=== PATIENT | female | born 1980 | race African-American/Black ===

== ENCOUNTER 2016-04-14 15:20 | Emergency (ER) | payer SELFPAY ==
[~2016-04-14] VITALS: Ht 167.6 cm; Wt 100.0 kg
[~2016-04-14 15:20] MED LIST: ZOLP10 PO
[2016-04-14] MEDS ORDERED: OMEP10 PO (16:17)
[2016-04-14 16:55] LABS: BASOPHILS # (AUTO) 0.21 K/uL (0.00-0.20); BASOPHILS % (AUTO) 2.6 % (0.0-2.0); EOSINOPHILS # (AUTO) 0.81 K/uL (0.00-0.70); EOSINOPHILS % (AUTO) 9.98 % (1.0-6.0); HEMATOCRIT 36.2 % (36-46); HEMOGLOBIN 11.8 g/dL (12.0-16.0); LYMPHOCYTES # (AUTO) 2.3 K/uL (1.0-4.8); LYMPHOCYTES % (AUTO) 28.8 % (22.0-44.0); MEAN CORPUSCULAR HEMOGLOBIN 27.4 pg (26.0-34.0); MEAN CORPUSCULAR HGB CONC 32.5 G/dL (31.0-37.0); MEAN CORPUSCULAR VOLUME 84 fL (80-100); MONOCYTES # (AUTO) 0.3 K/uL (0.1-1.0); MONOCYTES % (AUTO) 3.7 % (2.0-9.0); NEUTROPHILS # (AUTO) 4.5 K/uL (1.8-7.7); NEUTROPHILS % (AUTO) 54.9 % (40.0-70.0); PLATELET COUNT (AUTO) 169 K/uL (150-450); RED BLOOD CELL COUNT(AUTO) 4.29 MIL/uL (4.00-5.20); WHITE BLOOD COUNT (AUTO) 8.1 K/uL (4.5-11.0)
[2016-04-14 16:58] LABS: ANION GAP 10 mmol/L (8-16); CALCIUM, TOTAL 9.1 mg/dL (8.8-10.5); CARBON DIOXIDE 26 mmol/L (22-29); CHLORIDE 102 mmol/L (98-107); CREATININE 0.88 mg/dL (0.60-1.30); GLOMERULAR FILTR. RATE CALC > 60 mL/min (>60); POTASSIUM 3.7 mmol/L (3.5-5.1); SODIUM SERUM 138 mmol/L (136-145); UREA NITROGEN, BLOOD 13 mg/dL (7-18)
[2016-04-14 17:02] LABS: PROTHROMBIN TIME 10.4 SEC (9.4-11.6)
[2016-04-14 17:23] LABS: ALANINE AMINOTRANSFERASE 30 U/L (12-78); ALBUMIN 3.9 g/dL (3.4-5.0); ASPARTATE AMINOTRANSFERASE 13 U/L (15-37); BILIRUBIN,TOTAL 0.3 mg/dL (0.1-1.0); CREATINE KINASE MB < 0.5 ng/mL (0-5); CREATINE KINASE, TOTAL 78 U/L (26-192); TOTAL PROTEIN, SERUM 7.7 g/dL (6.4-8.2)
[2016-04-14] MEDS ORDERED: LORazepam 1 MG TABLET PO ONE (18:00)
[2016-04-14 18:15] LABS: APPEARANCE,URINE CLEAR (CLEAR); GLUCOSE, URINE (UA) NEGATIVE (NEGATIVE); KETONES,URINE NEGATIVE (NEGATIVE); LEUKOCYTE ESTERASE ,URINE NEGATIVE (NEGATIVE); OCCULT BLOOD,URINE NEGATIVE (NEGATIVE); PH,URINE 6.5 (5.0-8.0); PROTEIN,URINE NEGATIVE (NEGATIVE)
[2016-04-14 18:18] LABS: ADD UA MICROSCOPIC NO
[2016-04-14] MEDS ORDERED: KETOROLAC TROMETHAMINE 60 MG/2 ML VIAL IM ONE (19:15)
[2016-04-14 19:49] VITALS: BP 128/63
== END 2016-04-14 20:12 | disposition home or self-care (01) ==
LOC: EMS 15:24
DX: R07.89 Other chest pain (principal); F41.9 Anxiety disorder, unspecified; F17.210 Nicotine dependence, cigarettes, uncomplicated; Z88.0 Allergy status to penicillin
CPT/HCPCS: 36415; 71010; 80053; 80307; 81003; 82550; 82553; 84484; 84703; 85025; 85610; 93005; 96372; 99285; 99406; J1885

== ENCOUNTER 2017-02-28 09:12 | Emergency (ER) | payer OTHER ==
[~2017-02-28] VITALS: Ht 175.3 cm; Wt 95.0 kg
[~2017-02-28 09:12] MED LIST changes: +OMEP10 PO; -ZOLP10 PO; +ZOLP10TA7 PO
[2017-02-28 09:56] LABS: APPEARANCE,URINE CLEAR (CLEAR); GLUCOSE, URINE (UA) NEGATIVE (NEGATIVE); KETONES,URINE NEGATIVE (NEGATIVE); LEUKOCYTE ESTERASE ,URINE NEGATIVE (NEGATIVE); OCCULT BLOOD,URINE NEGATIVE (NEGATIVE); PROTEIN,URINE NEGATIVE (NEGATIVE)
[2017-02-28 10:02] LABS: ADD UA MICROSCOPIC NO
[2017-02-28 10:51] LABS: BASOPHILS % (AUTO) 0.6 % (0.0-2.0); EOSINOPHILS % (AUTO) 14.9 % (1.0-6.0); HEMATOCRIT 33.8 % (36-46); HEMOGLOBIN 11.4 g/dL (12.0-16.0); LYMPHOCYTES # (AUTO) 1.8 K/uL (1.0-4.8); LYMPHOCYTES % (AUTO) 19.9 % (22.0-44.0); MEAN CORPUSCULAR HEMOGLOBIN 28.8 pg (26.0-34.0); MEAN CORPUSCULAR HGB CONC 33.6 G/dL (31.0-37.0); MEAN CORPUSCULAR VOLUME 86 fL (80-100); MONOCYTES # (AUTO) 0.3 K/uL (0.1-1.0); MONOCYTES % (AUTO) 3.3 % (2.0-9.0); NEUTROPHILS # (AUTO) 5.5 K/uL (1.8-7.7); NEUTROPHILS % (AUTO) 61.3 % (40.0-70.0); PLATELET COUNT (AUTO) 123 K/uL (150-450); RED BLOOD CELL COUNT(AUTO) 3.95 MIL/uL (4.00-5.20); RED CELL DISTRIBUTION WIDTH 14.7 % (11.5-14.5); WHITE BLOOD COUNT (AUTO) 8.9 K/uL (4.5-11.0)
[2017-02-28 11:03] LABS: ANION GAP 10 mmol/L (8-16); CALCIUM, TOTAL 8.9 mg/dL (8.8-10.5); CARBON DIOXIDE 24 mmol/L (22-29); CHLORIDE 101 mmol/L (98-107); CREATININE 0.59 mg/dL (0.60-1.30); GLOMERULAR FILTR. RATE CALC > 60 mL/min (>60); POTASSIUM 3.6 mmol/L (3.5-5.1); SODIUM SERUM 135 mmol/L (136-145); UREA NITROGEN, BLOOD 5 mg/dL (7-18)
[2017-02-28] MEDS ORDERED: ACETAMINOPHEN 500 MG TABLET PO ONE (11:15)
[2017-02-28 11:30] LABS: ALANINE AMINOTRANSFERASE 33 U/L (12-78); ALBUMIN 3.6 g/dL (3.4-5.0); ASPARTATE AMINOTRANSFERASE 17 U/L (15-37); BILIRUBIN,TOTAL 0.7 mg/dL (0.1-1.0); TOTAL PROTEIN, SERUM 7.4 g/dL (6.4-8.2)
[2017-02-28 13:46] VITALS: BP 112/69
[2017-03-06 08:48] LABS: GC DNA N.A. AMPLIFY Negative (Negative)
== END 2017-02-28 13:51 | disposition home or self-care (01) ==
LOC: EMS 09:16
DX: O20.0 Threatened abortion (principal); N89.8 Other specified noninflammatory disorders of vagina; F17.210 Nicotine dependence, cigarettes, uncomplicated; Z3A.01 Less than 8 weeks gestation of pregnancy; Z88.0 Allergy status to penicillin; Z88.5 Allergy status to narcotic agent
CPT/HCPCS: 87210; 87491; 87591; 99284; 99285

== ENCOUNTER 2021-01-22 10:50 | Emergency (ER) | payer OTHER ==
[~2021-01-22] VITALS: Ht 172.7 cm; Wt 104.5 kg
[2021-01-22 11:16] VITALS: BP 152/88
[2021-01-22] MEDS: SODIUM CHLORIDE 0.9% 1,000 ML IV ONE ×2 (12:43→16:43)
[2021-01-22] MEDS: ONDANSETRON HCL 4 MG/2 ML VIAL IVP ONE (12:43)
[2021-01-22] MEDS: MORPHINE SULFATE 4 MG/ML SYRINGE IVP ONE ×3 (12:44→17:58)
[2021-01-22 12:49] LABS: BASOPHILS % (AUTO) 1.8 % (0.0-2.0); HEMATOCRIT 39.7 % (36-46); HEMOGLOBIN 12.8 g/dL (12.0-16.0); LYMPHOCYTES # (AUTO) 1.8 K/uL (1.0-4.8); LYMPHOCYTES % (AUTO) 25.2 % (22.0-44.0); MEAN CORPUSCULAR HEMOGLOBIN 27.5 pg (26.0-34.0); MEAN CORPUSCULAR HGB CONC 32.2 G/dL (31.0-37.0); MEAN CORPUSCULAR VOLUME 86 fL (80-100); MONOCYTES # (AUTO) 0.3 K/uL (0.1-1.0); MONOCYTES % (AUTO) 4.7 % (2.0-9.0); NEUTROPHILS # (AUTO) 4.3 K/uL (1.8-7.7); NEUTROPHILS % (AUTO) 61.3 % (40.0-70.0); PLATELET COUNT (AUTO) 121 K/uL (150-450); RED BLOOD CELL COUNT(AUTO) 4.63 MIL/uL (4.00-5.20); RED CELL DISTRIBUTION WIDTH 14.4 % (11.5-14.5)
[2021-01-22 13:01] LABS: ANION GAP 7 mmol/L (8-16); CALCIUM, TOTAL 8.9 mg/dL (8.8-10.5); CARBON DIOXIDE 27 mmol/L (22-29); CHLORIDE 105 mmol/L (98-107); CREATININE 0.74 mg/dL (0.60-1.30); GLOMERULAR FILTR. RATE CALC > 60 mL/min (>60); GLUCOSE,RANDOM 98 mg/dL (70-110); POTASSIUM 4.5 mmol/L (3.5-5.1); SODIUM SERUM 139 mmol/L (136-145); UREA NITROGEN, BLOOD 12 mg/dL (7-18)
[2021-01-22 13:07] LABS: PROTHROMBIN TIME 10.3 SEC (9.4-11.6)
[2021-01-22 13:09] LABS: LACTIC ACID 1.8 mmol/L (0.4-2.0)
[2021-01-22 13:15] LABS: ALANINE AMINOTRANSFERASE 24 U/L (12-78); ALBUMIN 3.8 g/dL (3.4-5.0); ALKALINE PHOSPHATASE 107 U/L (46-116); ASPARTATE AMINOTRANSFERASE 13 U/L (15-37); BILIRUBIN,TOTAL 0.4 mg/dL (0.1-1.0); HCG,QUANTITATIVE 2 mIU/mL (0-6); LIPASE 117 U/L (73-393); TOTAL PROTEIN, SERUM 7.5 g/dL (6.4-8.2)
[2021-01-22] MEDS ORDERED: IOHEXOL 350 MG/ML 150 ML VIAL ONE (13:37)
[2021-01-22] MEDS ORDERED: SODIUM CHLORIDE 0.9% 100 ML ONE (13:37)
[2021-01-22 17:23] LABS: APPEARANCE,URINE CLEAR (CLEAR); BILIRUBIN,URINE NEGATIVE (NEGATIVE); GLUCOSE, URINE (UA) NEGATIVE (NEGATIVE); KETONES,URINE NEGATIVE (NEGATIVE); LEUKOCYTE ESTERASE ,URINE NEGATIVE (NEGATIVE); NITRATE,URINE NEGATIVE (NEGATIVE); OCCULT BLOOD,URINE NEGATIVE (NEGATIVE); PH,URINE 5.5 (5.0-8.0); PROTEIN,URINE NEGATIVE (NEGATIVE); UROBILINOGEN,URINE 0.2 mg/dL (<=1.0)
[2021-01-22 17:28] LABS: BACTERIA,URINE None Seen /HPF (None Seen); RBC,URINE None Seen /HPF (0-2); WBC,URINE None Seen /HPF (0-5)
== END 2021-01-22 18:17 | disposition home or self-care (01) ==
LOC: EMS 10:57
DX: R10.32 Left lower quadrant pain (principal); R11.2 Nausea with vomiting, unspecified; R50.9 Fever, unspecified; Z88.0 Allergy status to penicillin; Z88.6 Allergy status to analgesic agent
CPT/HCPCS: 36415; 74177; 80053; 81001; 83605; 83690; 84702; 85025; 85610; 96361; 96374; 96375; 96376; 99285; J2270; J2405; J7030; J7050; Q9967

== ENCOUNTER 2021-03-21 21:06 | Emergency (ER) | payer OTHER ==
[~2021-03-21] VITALS: Ht 172.7 cm; Wt 100.0 kg
[2021-03-21 21:52] LABS: BASOPHILS % (AUTO) 0.2 % (0.0-2.0); EOSINOPHILS % (AUTO) 2.6 % (1.0-6.0); HEMATOCRIT 38.5 % (36-46); HEMOGLOBIN 12.7 g/dL (12.0-16.0); LYMPHOCYTES # (AUTO) 1.6 K/uL (1.0-4.8); LYMPHOCYTES % (AUTO) 31.8 % (22.0-44.0); MEAN CORPUSCULAR HEMOGLOBIN 27.3 pg (26.0-34.0); MEAN CORPUSCULAR HGB CONC 32.9 G/dL (31.0-37.0); MEAN CORPUSCULAR VOLUME 83 fL (80-100); MONOCYTES # (AUTO) 0.3 K/uL (0.1-1.0); MONOCYTES % (AUTO) 5.1 % (2.0-9.0); NEUTROPHILS % (AUTO) 60.3 % (40.0-70.0); PLATELET COUNT (AUTO) 105 K/uL (150-450); RED BLOOD CELL COUNT(AUTO) 4.65 MIL/uL (4.00-5.20); RED CELL DISTRIBUTION WIDTH 14.2 % (11.5-14.5)
[2021-03-21 22:09] LABS: ANION GAP 10 mmol/L (8-16); CARBON DIOXIDE 25 mmol/L (22-29); CHLORIDE 103 mmol/L (98-107); CREATININE 0.98 mg/dL (0.60-1.30); GLOMERULAR FILTR. RATE CALC > 60 mL/min (>60); GLUCOSE,RANDOM 108 mg/dL (70-110); POTASSIUM 3.9 mmol/L (3.5-5.1); SODIUM SERUM 138 mmol/L (136-145); UREA NITROGEN, BLOOD 13 mg/dL (7-18)
[2021-03-21 22:18] LABS: ALANINE AMINOTRANSFERASE 61 U/L (12-78); ALBUMIN 3.8 g/dL (3.4-5.0); ALKALINE PHOSPHATASE 107 U/L (46-116); ASPARTATE AMINOTRANSFERASE 20 U/L (15-37); BILIRUBIN,TOTAL 0.4 mg/dL (0.1-1.0); HCG,QUANTITATIVE < 1 mIU/mL (0-6); TOTAL PROTEIN, SERUM 7.6 g/dL (6.4-8.2)
[2021-03-21 23:08] LABS: COVID AG,FIA SOURCE NASOPHARYNGEAL
[2021-03-22] MEDS ORDERED: KETOROLAC TROMETHAMINE 60 MG/2 ML VIAL IM ONE (00:15)
[2021-03-22 00:31] VITALS: BP 132/102
== END 2021-03-22 00:32 | disposition home or self-care (01) ==
LOC: EMS 21:40
DX: M54.6 Pain in thoracic spine (principal); R07.89 Other chest pain; Z88.0 Allergy status to penicillin; Z88.5 Allergy status to narcotic agent; Z20.822 Contact with and (suspected) exposure to COVID-19
CPT/HCPCS: 36415; 71045; 80053; 84484; 84702; 85025; 87426; 93005; 96372; 99285; J1885

== ENCOUNTER 2022-06-02 10:10 | Emergency (ER) | payer OTHER ==
[~2022-06-02] VITALS: Ht 172.7 cm; Wt 84.5 kg
[2022-06-02] MEDS ORDERED: ACETAMINOPHEN 500 MG TABLET PO ONE (13:15)
[2022-06-02] MEDS ORDERED: KETOROLAC TROMETHAMINE 30 MG/ML VIAL IM ONE (13:15)
[2022-06-02 14:06] VITALS: BP 112/72
[2022-06-02] MEDS ORDERED: IBUP-1492 PO (14:23)
== END 2022-06-02 14:34 | disposition home or self-care (01) ==
LOC: EMS 10:12
DX: M25.552 Pain in left hip (principal); Z98.890 Other specified postprocedural states; Z88.0 Allergy status to penicillin; Z88.8 Allergy status to other drugs, medicaments and biological substances
CPT/HCPCS: 99283; 73503; 96372; J1885

== ENCOUNTER 2022-07-28 21:25 | Emergency (ER) | payer OTHER ==
[~2022-07-28 21:25] MED LIST changes: +IBUP-1492 PO; -OMEP10 PO; -ZOLP10TA7 PO
== END 2022-07-28 22:28 | disposition left against medical advice (07) ==
LOC: EMS 21:26
DX: Z53.21 Procedure and treatment not carried out due to patient leaving prior to being seen by health care provider (principal)

== ENCOUNTER 2023-01-22 22:48 | Emergency (ER) | payer OTHER ==
[~2023-01-22] VITALS: Ht 172.7 cm; Wt 86.4 kg
[2023-01-22 22:54] VITALS: BP 133/69; PULSE 74; RESP 16; TEMP 98.5
[2023-01-23] MEDS ORDERED: KETOROLAC TROMETHAMINE 30 MG/ML VIAL IM ONE (00:30)
[2023-01-23] MEDS ORDERED: METH-812 PO (01:14)
[2023-01-23] MEDS ORDERED: IBUP-1492 PO (01:14)
== END 2023-01-23 01:40 | disposition home or self-care (01) ==
LOC: EMS 22:49
DX: S13.4XXA Sprain of ligaments of cervical spine, initial encounter (principal); Z98.890 Other specified postprocedural states; Z88.0 Allergy status to penicillin; Z91.040 Latex allergy status; Z88.8 Allergy status to other drugs, medicaments and biological substances; X58.XXXA Exposure to other specified factors, initial encounter; Y93.89 Activity, other specified; Y92.89 Other specified places as the place of occurrence of the external cause; Y99.8 Other external cause status
CPT/HCPCS: 99283; 72050; 96372; J1885

== ENCOUNTER 2023-03-23 03:20 | Emergency (ER) | payer OTHER ==
[~2023-03-23] VITALS: Ht 172.7 cm; Wt 87.7 kg
[~2023-03-23 03:20] MED LIST changes: +METH-812 PO
[2023-03-23 03:34] VITALS: TEMP 97.8
[2023-03-23] MEDS ORDERED: SODIUM CHLORIDE 0.9% 1,000 ML IV ONE (03:45)
[2023-03-23] MEDS ORDERED: MORPHINE SULFATE 2 MG/ML SYRINGE IVP ONE (03:45)
[2023-03-23] MEDS ORDERED: MAG HYDROX/ALUMINUM HYD/SIMETH 30 ML SUSPENSION UDCUP PO ONE (03:45)
[2023-03-23] MEDS ORDERED: FAMOTIDINE 20 MG/2 ML VIAL IVP ONE (03:45)
[2023-03-23] MEDS ORDERED: SODIUM CHLORIDE 0.9% 100 ML ONE (04:09)
[2023-03-23] MEDS ORDERED: IOHEXOL 350 MG/ML 100 ML VIAL ONE (04:09)
[2023-03-23 04:15] LABS: COVID AG,FIA SOURCE NASAL SWAB
[2023-03-23 04:19] LABS: EOSINOPHILS % (AUTO) 2.3 % (1.0-6.0); HEMATOCRIT 33.9 % (36-46); HEMOGLOBIN 11.3 g/dL (12.0-16.0); LYMPHOCYTES # (AUTO) 1.8 K/uL (1.0-4.8); LYMPHOCYTES % (AUTO) 31.1 % (22.0-44.0); MEAN CORPUSCULAR HEMOGLOBIN 28.3 pg (26.0-34.0); MEAN CORPUSCULAR HGB CONC 33.2 G/dL (31.0-37.0); MEAN CORPUSCULAR VOLUME 85 fL (80-100); MONOCYTES # (AUTO) 0.3 K/uL (0.1-1.0); MONOCYTES % (AUTO) 4.6 % (2.0-9.0); NEUTROPHILS # (AUTO) 3.5 K/uL (1.8-7.7); PLATELET COUNT (AUTO) 145 K/uL (150-450); RED BLOOD CELL COUNT(AUTO) 3.98 MIL/uL (4.00-5.20); RED CELL DISTRIBUTION WIDTH 14.2 % (11.5-14.5); WHITE BLOOD COUNT (AUTO) 5.8 K/uL (4.5-11.0)
[2023-03-23 04:30] LABS: ANION GAP 7 mmol/L (8-16); CALCIUM, TOTAL 8.9 mg/dL (8.8-10.5); CARBON DIOXIDE 29 mmol/L (22-29); CHLORIDE 105 mmol/L (98-107); CREATININE 0.71 mg/dL (0.60-1.30); GLOMERULAR FILTR. RATE CALC > 60 mL/min (>60); GLUCOSE,RANDOM 96 mg/dL (70-110); POTASSIUM 4.6 mmol/L (3.5-5.1); SODIUM SERUM 141 mmol/L (136-145); UREA NITROGEN, BLOOD 15 mg/dL (7-18)
[2023-03-23 04:32] LABS: ALANINE AMINOTRANSFERASE 68 U/L (12-78); ALBUMIN 3.7 g/dL (3.4-5.0); ALKALINE PHOSPHATASE 103 U/L (46-116); ASPARTATE AMINOTRANSFERASE 168 U/L (15-37); BILIRUBIN,TOTAL 0.5 mg/dL (0.1-1.0); CREATINE KINASE, TOTAL ONLY 66 U/L (26-192); TOTAL PROTEIN, SERUM 6.9 g/dL (6.4-8.2)
[2023-03-23 04:39] LABS: TROPONIN I-HIGH SENSITIVITY 4 ng/L (<51)
[2023-03-23 04:40] LABS: B-TYPE NATRIURETIC PEPTIDE 15 pg/mL (0-100)
[2023-03-23 04:45] LABS: PROTHROMBIN TIME 10.8 SEC (9.4-11.6)
[2023-03-23 06:13] LABS: LIPASE 42 U/L (16-77)
[2023-03-23] MEDS ORDERED: MORPHINE SULFATE 4 MG/ML SYRINGE IVP ONE (06:30)
[2023-03-23] MEDS ORDERED: ONDANSETRON HCL 4 MG/2 ML VIAL IVP ONE (06:30)
[2023-03-23 06:47] LABS: APPEARANCE,URINE CLEAR (CLEAR); BILIRUBIN,URINE NEGATIVE (NEGATIVE); COLOR,URINE COLORLESS (YELLOW); GLUCOSE, URINE (UA) NEGATIVE (NEGATIVE); KETONES,URINE NEGATIVE (NEGATIVE); LEUKOCYTE ESTERASE ,URINE NEGATIVE (NEGATIVE); NITRATE,URINE NEGATIVE (NEGATIVE); OCCULT BLOOD,URINE NEGATIVE (NEGATIVE); PH,URINE 7.5 (5.0-8.0); PROTEIN,URINE NEGATIVE (NEGATIVE); UROBILINOGEN,URINE <=1.0 mg/dL (<=1.0)
[2023-03-23] MEDS ORDERED: HYDR-4723 PO (08:37)
[2023-03-23] MEDS ORDERED: POLY238P PO (08:37)
[2023-03-23 09:01] VITALS: BP 125/88; PULSE 81; RESP 15
[2023-03-23 09:12] LABS: SARS-COV2 (COVID) ANTIGEN,FIA Negative (Negative)
== END 2023-03-23 09:18 | disposition home or self-care (01) ==
LOC: EMS 03:21
DX: R07.9 Chest pain, unspecified (principal); K80.20 Calculus of gallbladder without cholecystitis without obstruction; K59.00 Constipation, unspecified; K76.0 Fatty (change of) liver, not elsewhere classified; Z88.0 Allergy status to penicillin; Z88.5 Allergy status to narcotic agent; Z98.890 Other specified postprocedural states; Z20.822 Contact with and (suspected) exposure to COVID-19
CPT/HCPCS: 80053; 81003; 82550; 83690; 83880; 84484; 84703; 85025; 85610; 85730; 36415; 71260; 72193; 74160; 76705; 99285; 93005; 96361; 96376; 96374; 96375; 87426; J3490; J2270 ×2; J2405; Q9967; J7030; J7050

== ENCOUNTER 2023-06-18 02:29 | Emergency (ER) | payer OTHER ==
[~2023-06-18] VITALS: Ht 175.3 cm; Wt 90.9 kg
[~2023-06-18 02:29] MED LIST changes: +HYDR-4723 PO; +POLY238P PO
[2023-06-18 03:38] LABS: BASOPHILS % (AUTO) 0.6 % (0.0-2.0); EOSINOPHILS % (AUTO) 2.4 % (1.0-6.0); HEMATOCRIT 35.9 % (36-46); HEMOGLOBIN 11.7 g/dL (12.0-16.0); LYMPHOCYTES # (AUTO) 1.6 K/uL (1.0-4.8); LYMPHOCYTES % (AUTO) 23.1 % (22.0-44.0); MEAN CORPUSCULAR HGB CONC 32.6 G/dL (31.0-37.0); MEAN CORPUSCULAR VOLUME 86 fL (80-100); MONOCYTES # (AUTO) 0.4 K/uL (0.1-1.0); MONOCYTES % (AUTO) 5.1 % (2.0-9.0); NEUTROPHILS # (AUTO) 4.8 K/uL (1.8-7.7); NEUTROPHILS % (AUTO) 68.8 % (40.0-70.0); PLATELET COUNT (AUTO) 160 K/uL (150-450); RED BLOOD CELL COUNT(AUTO) 4.19 MIL/uL (4.00-5.20); RED CELL DISTRIBUTION WIDTH 14.4 % (11.5-14.5)
[2023-06-18 03:50] LABS: ANION GAP 8 mmol/L (8-16); CALCIUM, TOTAL 8.8 mg/dL (8.8-10.5); CARBON DIOXIDE 28 mmol/L (22-29); CHLORIDE 100 mmol/L (98-107); CREATININE 0.72 mg/dL (0.60-1.30); GLOMERULAR FILTR. RATE CALC > 60 mL/min (>60); GLUCOSE,RANDOM 97 mg/dL (70-110); POTASSIUM 4.2 mmol/L (3.5-5.1); SODIUM SERUM 136 mmol/L (136-145); UREA NITROGEN, BLOOD 14 mg/dL (7-18)
[2023-06-18 04:01] LABS: ALANINE AMINOTRANSFERASE 86 U/L (12-78); ALBUMIN 3.4 g/dL (3.4-5.0); ALKALINE PHOSPHATASE 116 U/L (46-116); ASPARTATE AMINOTRANSFERASE 268 U/L (15-37); BILIRUBIN,TOTAL 0.8 mg/dL (0.1-1.0); HCG,QUANTITATIVE < 1 mIU/mL (0-6); LIPASE 38 U/L (16-77); TOTAL PROTEIN, SERUM 7.1 g/dL (6.4-8.2)
[2023-06-18] MEDS: SODIUM CHLORIDE 0.9% 1,000 ML IV ONE (04:25)
[2023-06-18] MEDS: METOCLOPRAMIDE HCL 5 MG/ML 2 ML VIAL IVP ONE (04:26)
[2023-06-18] MEDS: MORPHINE SULFATE 2 MG/ML SYRINGE IVP ONE (04:26)
[2023-06-18 05:36] VITALS: BP 119/77; PULSE 78; RESP 16; TEMP 98.3
[2023-06-18 06:00] LABS: APPEARANCE,URINE CLEAR (CLEAR); BILIRUBIN,URINE NEGATIVE (NEGATIVE); COLOR,URINE LIGHT YELLOW (YELLOW); GLUCOSE, URINE (UA) NEGATIVE (NEGATIVE); KETONES,URINE NEGATIVE (NEGATIVE); LEUKOCYTE ESTERASE ,URINE NEGATIVE (NEGATIVE); NITRATE,URINE NEGATIVE (NEGATIVE); OCCULT BLOOD,URINE NEGATIVE (NEGATIVE); PH,URINE 6.5 (5.0-8.0); PROTEIN,URINE NEGATIVE (NEGATIVE); SPECIFIC GRAVITIY, URINE 1.019 (1.003-1.030)
[2023-06-18] MEDS ORDERED: FAMO20 PO (06:12)
== END 2023-06-18 07:03 | disposition home or self-care (01) ==
LOC: EMS 02:29
DX: K80.70 Calculus of gallbladder and bile duct without cholecystitis without obstruction (principal); Z98.890 Other specified postprocedural states; Z88.0 Allergy status to penicillin; Z91.040 Latex allergy status; Z88.8 Allergy status to other drugs, medicaments and biological substances
CPT/HCPCS: 99285; 96374; 76705; 96361; 96375; 80053; 81003; 83690; 84702; 85025; 36415; J2765; J2270; J7030

== ENCOUNTER 2023-12-12 04:48 | Emergency (ER) | payer OTHER ==
[~2023-12-12] VITALS: Ht 172.7 cm; Wt 84.1 kg
[~2023-12-12 04:48] MED LIST changes: +FAMO20 PO; +HYDR-4062 PO; -HYDR-4723 PO
[2023-12-12 04:58] VITALS: TEMP 97.6
[2023-12-12 05:52] VITALS: BP 124/102; PULSE 89; RESP 16; O2SAT 100
[2023-12-12] MEDS: KETOROLAC TROMETHAMINE 30 MG/ML VIAL IM ONE (06:28)
[2023-12-12] MEDS: OxyCODONE HCL 5 MG IR TABLET PO ONE (06:28)
[2023-12-12] MEDS ORDERED: ACET-3385 PO (06:39)
[2023-12-12] MEDS ORDERED: LIDO700A15 TP (06:39)
== END 2023-12-12 07:17 | disposition home or self-care (01) ==
LOC: EMS 04:48
DX: G89.29 Other chronic pain (principal); M54.6 Pain in thoracic spine; M54.2 Cervicalgia; I10 Essential (primary) hypertension; Z88.0 Allergy status to penicillin; Z88.5 Allergy status to narcotic agent; Z91.040 Latex allergy status; Z98.890 Other specified postprocedural states
CPT/HCPCS: 99283; 96372; J1885